=== PATIENT | female | born 1970 | race Caucasian/White ===

== ENCOUNTER 2016-08-17 02:18 | Emergency (ER) | payer OTHER ==
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
[2016-08-17] MEDS ORDERED: DIPHTH,PERTUSS(ACELL),TET VAC 0.5 ML VIAL IM ONE (03:06)
[2016-08-17 03:07] VITALS: BP 131/75; PULSE 75; TEMP 97.5; BMI 26.6
[2016-08-17] MEDS ORDERED: OXYCODONE/APAP 5/325MG COMBO TABLET ONE (03:54)
[2016-08-17] MEDS ORDERED: OXYCODONE/APAP 5/325MG COMBO TABLET PO ONE (03:54)
== END 2016-08-17 04:18 | disposition home or self-care (01) ==
LOC: JER 02:18
PROC: 3E0234Z Introduction of Serum, Toxoid and Vaccine into Muscle, Percutaneous Approach (ICD-10-PCS; principal; 2016-08-17)
DX: S02.2XXA Fracture of nasal bones, initial encounter for closed fracture (principal); S00.83XA Contusion of other part of head, initial encounter; S00.03XA Contusion of scalp, initial encounter; M54.2 Cervicalgia; Y04.2XXA Assault by strike against or bumped into by another person, initial encounter; Y93.89 Activity, other specified; Y92.013 Bedroom of single-family (private) house as the place of occurrence of the external cause; Y07.01 Husband, perpetrator of maltreatment and neglect
CPT/HCPCS: 70450-TC; 70486-TC; 72125-TC; 84703; 99283-25

== ENCOUNTER 2018-08-23 23:53 | Emergency (ER) | payer OTHER ==
[2018-08-24 01:25] VITALS: BP 115/64; PULSE 75; TEMP 98; BMI 25.0
--- NOTE | 2018-08-24 01:37 | PDOC ---
History of Present Illness - General Chief Complaint: Pain, Acute Stated Complaint: PELVIC PAIN Time Seen by Provider: 08/24/18 01:37 History Source: Patient - History of Present Illness Initial Comments: 08/24/18 02:18 The patient is a year old female with no reported significant PMH who presents to our ED c/o 2 day h/o difficulty urinating. States her last normal urination was three days previous. Denies any associated fevers/chills, saddle anesthesia , back pain, difficulty ambulating or any changes in her bowel habits. Evaluation by surgical specialist for symptoms, was told to f/u with urology however has not done so. The patient denies chest pain, abdominal pain, nausea/vomiting, fevers/chills, shortness of breath, numbness/tingling. Past History - Past Medical History Allergies/Adverse Reactions: Allergies Allergy/AdvReac Type Severity Reaction Status Date / Time No Known Allergies Allergy Verified 08/24/18 01:24 - Suicide/Smoking/Psychosocial Hx Smoking Status: No Smoking History: Never smoked Have you smoked in the past 12 months: No Number of Cigarettes Smoked Daily: 0 Information on smoking cessation initiated: No Hx Alcohol Use: No Drug/Substance Use Hx: No Review of Systems - Review of Systems Constitutional: No: Chills, Fever HEENTM: No: Recent change in vision Respiratory: No: Cough, Shortness of Breath Cardiac (ROS): No: Chest Pain, Lightheadedness, Palpitations, Syncope ABD/GI: No: Constipated, Diarrhea, Nausea, Vomiting : Yes: Other (urinary incontinence). No: Burning, Hematuria *Physical Exam - Vital Signs Last Vital Signs Temp Pulse Resp BP Pulse Ox 98 F 75 18 115/64 99 08/24/18 00:00 08/24/18 00:00 08/24/18 00:00 08/24/18 00:00 08/24/18 00:00 - Physical Exam General Appearance: Yes: Nourished, Appropriately Dressed HEENT: positive: Normal Voice, Hearing Grossly Normal Neck: positive: Trachea midline, Supple Respiratory/Chest: positive: Lungs Clear, Normal Breath Sounds Cardiovascular: positive: S1, S2. negative: JVD Musculoskeletal: negative: CVA Tenderness (R), CVA Tenderness (L) Extremity: positive: Normal Capillary Refill, Normal Inspection Integumentary: positive: Normal Color, Dry, Warm Neurologic: positive: Fully Oriented, Alert ED Treatment Course - LABORATORY CBC & Chemistry Diagram: 08/24/18 01:52 08/24/18 03:00 Medical Decision Making - Medical Decision Making 08/24/18 04:23 48 year old female with pelvic pain and urinary retention. VS unremarkable. Will place Lyon to r/o retention. Consider cauda equina syndrome/spinal cord involvement, however no bowel incontinence, normal reflexes, no saddle anesthesia. Reassess. 08/24/18 04:26 Lyon placement w/550 cc of urine voided UA clean CBC, CMP unremarkable including no Cr bump Will discharge home with leg bag and referral to urology. I discussed the physical exam findings, ancillary test results and final diagnoses with the patient. I answered all of the patient's questions. The patient was satisfied with the care received and felt comfortable with the discharge plan and treatment plan. The patient will return to the Emergency Department with any new, persistent or worsening symptoms. *DC/Admit/Observation/Transfer Diagnosis at time of Disposition: Urinary retention - Discharge Dispostion Disposition: HOME Condition at time of disposition: Good Decision to Admit order: No - Referrals Referrals: Yuliya Mg [Primary Care Provider] - Mino Toledo MD [Staff Physician] - - Patient Instructions Additional Instructions: You were evaluated today for your urinary retention. We are discharging you home with a Lyon catheter. You must be evaluated by a urologist in the next 48 hours. We have provided you with a referral or you can call your insurance company for a list of doctors. Your care is not complete until you are evaluated by a urologist. Return immediately to the Emergency Department for any new/worsening/concerning symptoms including numbness, loss of bowel or bladder control. - Post Discharge Activity
[2018-08-24 02:31] LABS: BASO % 0.7 % (0-2.0); EOS % 0.8 % (0-4.5); HEMATOCRIT 36.2 % (32.4-45.2); HEMOGLOBIN 11.9 GM/dL (10.7-15.3); LYMPH % 30.6 % (8-40); MCH 27.6 pg (25.7-33.7); MCHC 32.9 g/dl (32.0-36.0); MEAN PLT VOLUME 8.4 fl (7.5-11.1); MONO % 8.7 % (3.8-10.2); NEUT % 59.2 % (42.8-82.8); PLATELET COUNT 264 K/MM3 (134-434); RBC 4.31 M/mm3 (3.60-5.2); RDW 14.5 % (11.6-15.6); WHITE BLOOD COUNT 6.4 K/mm3 (4.0-10.0)
[2018-08-24 03:37] LABS: PH,URINE 6.5 (5.0-8.0); URINE APPEARANCE CLEAR; URINE BILIRUBIN NEGATIVE (NEGATIVE); URINE COLOR YELLOW; URINE GLUCOSE (UA) NEGATIVE (NEGATIVE); URINE KETONE NEGATIVE (NEGATIVE); URINE LEUK ESTERASE NEGATIVE (NEGATIVE); URINE NITRITE NEGATIVE (NEGATIVE); URINE PROTEIN NEGATIVE (NEGATIVE); URINE UROBILINOGEN 0.2 mg/dL (0.2-1.0)
--- NOTE | 2018-08-24 03:45 | PDOC ---
Documentation entered by Laine Mcfarland SCRIBE, acting as scribe for Viv Haas DO. iVv Haas DO: This documentation has been prepared by the Bartolo vincent Daisy, SCRIBE, under my direction and personally reviewed by me in its entirety. I confirm that the documentation accurately reflects all work , treatment, procedures, and medical decision making performed by me. Attending Attestation - Resident Resident Name: Georgina Duncan - ED Attending Attestation I have performed the following: I have examined & evaluated the patient, The case was reviewed & discussed with the resident, I agree w/resident's findings & plan - HPI HPI: 08/24/18 01:52 The patient is a otherwise healthy 48 YOF who presents with pelvic pain for the past few days. Patient believes her pelvic pain may be secondary to urinary retention, which she has been experiencing for the past 4-5 days. Denies any dribbling, hematuria, or dysuria. Patient was evaluated by a drum attendant recently when this happened another time and told to follow up with urology. Denies numbness/tingling/weakness, difficulty walking, fever, chills, N/V/D/C, or hematuria. - Physicial Exam PE: 08/24/18 01:57 Agrees with resident's exam. - Medical Decision Making 08/24/18 03:43 48-year-old female complaining of intermittent urinary retention for several weeks There are no symptoms to suggest spinal cord involvement/cauda equina syndrome Lyon catheter placed with the immediate return of approximately 600 mL of clear yellow urine Plan for DC with leg bag with urology follow-up
[2018-08-24 04:14] LABS: ALBUMIN 3.7 g/dl (3.4-5.0); ALK PHOS 57 U/L (45-117); ANION GAP 5 MMOL/L (8-16); BILIRUBIN,TOTAL 0.2 mg/dL (0.2-1); BLOOD UREA NITROGEN 8 mg/dL (7-18); CALCIUM 8.6 mg/dL (8.5-10.1); CHLORIDE 104 mmol/L (98-107); CO2 29 mmol/L (21-32); CREATININE 0.5 mg/dL (0.55-1.3); GLUCOSE,RANDOM 99 mg/dL (74-106); POTASSIUM 3.7 mmol/L (3.5-5.1); SGOT/AST 14 U/L (15-37); SGPT/ALT 20 U/L (13-61); SODIUM 138 mmol/L (136-145); TOT PROT 6.8 g/dl (6.4-8.2)
== END 2018-08-24 07:41 | disposition home or self-care (01) ==
LOC: JER 23:53
PROC: 3E0337Z Introduction of Electrolytic and Water Balance Substance into Peripheral Vein, Percutaneous Approach (ICD-10-PCS; principal; 2018-08-23)
PROC: 3E033GC Introduction of Other Therapeutic Substance into Peripheral Vein, Percutaneous Approach (ICD-10-PCS; 2018-08-23)
PROC: 3E033GC Introduction of Other Therapeutic Substance into Peripheral Vein, Percutaneous Approach (ICD-10-PCS; 2018-08-23)
PROC: 3E0333Z Introduction of Anti-inflammatory into Peripheral Vein, Percutaneous Approach (ICD-10-PCS; 2018-08-23)
PROC: 3E0233Z Introduction of Anti-inflammatory into Muscle, Percutaneous Approach (ICD-10-PCS; 2018-08-23)
DX: T78.40XA Allergy, unspecified, initial encounter (principal); L50.0 Allergic urticaria
CPT/HCPCS: 36415; 80053; 81003; 84703; 85025; 87086; 99282-25